=== PATIENT | male | born 1980 | race Native Hawaiian/Other Pacific Islander ===

== ENCOUNTER 2016-10-04 02:32 | Observation (INO) | payer OTHER ==
[2016-10-04 04:37] LABS: BASO # 0.1 K/uL (0.0-0.2); BASO % 0.7 % (0.0-2.0); EOS # 0.1 K/uL (0.0-0.7); EOS % 1.2 % (0.0-4.0); HEMATOCRIT 45.1 % (35.0-51.0); LYMPH # 1.6 K/uL (1.0-4.3); LYMPH % 15.3 % (20.0-40.0); MEAN CELL VOLUME 90.7 fL (80.0-94.0); MEAN CORPUSCULAR HEMOGLOBIN 30.7 pg (27.0-31.0); MEAN CORPUSCULAR HGB CONC 33.8 g/dL (33.0-37.0); MEAN PLATELET VOLUME 8.2 fL (7.2-11.7); MONO # 0.8 K/uL (0.0-0.8); MONO % 7.2 % (0.0-10.0); RED CELL DISTRIBUTION WIDTH 13.1 % (11.5-14.5); WHITE BLOOD COUNT 10.5 K/uL (4.8-10.8)
[2016-10-04 04:46] LABS: SODIUM 142 mmol/L (132-148)
[2016-10-04 04:48] LABS: GFR AFRICAN-AMERICAN > 60
[2016-10-04 04:49] LABS: ALB/GLOB RATIO 1.4 (1.0-2.1); ALKALINE PHOSPHATASE 71 U/L (38-126); ALT/SGPT 26 U/L (21-72); AST/SGOT 30 U/L (17-59); BLOOD UREA NITROGEN 5 mg/dL (9-20); CARBON DIOXIDE 23 mmol/L (22-30); GLUCOSE,RANDOM 109 mg/dL (75-110); TOTAL PROTEIN 8.4 g/dL (6.3-8.3)
[2016-10-04 04:50] LABS: ALCOHOL SERUM < 10 mg/dl (0-10); CALCIUM 9.2 mg/dl (8.6-10.4)
[2016-10-04 04:56] LABS: URINE BILIRUBIN NEGATIVE (NEGATIVE); URINE BLOOD NEGATIVE (NEGATIVE); URINE COLOR Straw (YELLOW); URINE GLUCOSE (UA) NORMAL (Normal); URINE KETONE NEGATIVE (NEGATIVE); URINE LEUKOCYTE ESTERASE NEG Leu/uL (Negative); URINE PROTEIN NEGATIVE (NEGATIVE); URINE UROBILINOGEN NORMAL mg/dL (0.2-1.0)
--- NOTE | 2016-10-04 05:00 | C.PDOC ---
History Of Present Illness A 36 year old male is brought to the emergency room by Police for erratic behavior that occurred prior to arrival. Patient notes that he raised his voice at his parents which caused them to be concerned. Patient has no history of psychiatric diagnosis. Patient denies suicidal ideation, homicidal ideation, or any other complaints. Time Seen by Provider: 10/04/16 02:49 Chief Complaint (Nursing): Medical Clearance History Per: Patient History/Exam Limitations: no limitations Onset/Duration Of Symptoms: Hrs Current Symptoms Are (Timing): Still Present Severity: Mild Recent travel outside of the [place]: No Past Medical History Reviewed: Historical Data, Nursing Documentation, Vital Signs Vital Signs: Last Vital Signs Temp 98.8 F 10/04/16 06:24 Pulse 82 10/04/16 06:24 Resp 99 H 10/04/16 06:24 BP 128/87 10/04/16 06:24 Pulse Ox 96 10/04/16 05:47 - Medical History PMH: Denies: Diabetes, Hepatitis, HIV, HTN, Seizures, Sexually Transmitted Disease Family History: States: No Known Family Hx - Social History Hx Alcohol Use: Yes Hx Substance Use: No - Immunization History Hx Tetanus Toxoid Vaccination: No Hx Influenza Vaccination: No Hx Pneumococcal Vaccination: No Review Of Systems Except As Marked, All Systems Reviewed And Found Negative. Constitutional: Negative for: Fever, Chills Gastrointestinal: Negative for: Nausea, Vomiting, Diarrhea Psych: Negative for: Anxiety, Depression, Suicidal ideation Physical Exam - Physical Exam Appears: Non-toxic, Unkempt Skin: Normal Color, Warm, Dry, No Rash Head: Atraumatic, Normacephalic Eye(s): bilateral: Normal Inspection, EOMI Nose: Normal Oral Mucosa: Moist Chest: Symmetrical Cardiovascular: Rhythm Regular Respiratory: Normal Breath Sounds, No Rales, No Rhonchi, No Wheezing Gastrointestinal/Abdominal: Soft, No Tenderness, No Guarding, No Rebound Extremity: Normal ROM, No Tenderness Neurological/Psych: Oriented x3, Normal Speech, Normal Cognition, Other (guarded ) Gait: Steady ED Course And Treatment - Laboratory Results Result Diagrams: 10/04/16 04:33 10/04/16 04:33 ECG: Interpreted By Me, Viewed By Me ECG Rhythm: Sinus Rhythm ECG Interpretation: Normal Interpretation Of ECG: Nonspecific ST/T changes Rate From EC O2 Sat by Pulse Oximetry: 96 - Radiology CXR: Interpreted by Me, Viewed By Me CXR Interpretation: Yes: No Acute Disease Progress Note: Patient was seen and evaluated by social media designer who instructs psychiatric screening. Patient is medically cleared. Patient signed out to SANTOS Prater at 07:00 am pending labs and disposition. Disposition - Disposition Disposition Time: 06:38 Condition: STABLE - Clinical Impression Clinical Impression: Psychiatric disorder - Scribe Statement The provider has reviewed the documentation as recorded by the Sandeeibishmael Al Provider Scribe Attestation: All medical record entries made by the Scribe were at my direction and personally dictated by me. I have reviewed the chart and agree that the record accurately reflects my personal performance of the history, physical exam, medical decision making, and the department course for this patient. I have also personally directed, reviewed, and agree with the discharge instructions and disposition.
--- NOTE | 2016-10-04 08:11 | RAD ---
HISTORY: poss involuntary psych adm. COMPARISON: No prior. FINDINGS: LUNGS: No active pulmonary disease. PLEURA: No significant pleural effusion identified, no pneumothorax apparent. CARDIOVASCULAR: Normal. OSSEOUS STRUCTURES: No significant abnormalities. VISUALIZED UPPER ABDOMEN: Normal. OTHER FINDINGS: None. IMPRESSION: No active disease.
[2016-10-04 11:54] VITALS: BP 125/87; PULSE 95; RESP 20; TEMP 98.6; O2SAT 98
[2016-10-04 17:03] LABS: CHLORIDE 102 mmol/L (98-107)
--- NOTE | 2016-10-06 17:09 | CARD ---
APPROVED REPORT EKG Measurement Heart [id number] <Conclusion> Normal sinus rhythm Normal ECG
== END 2016-10-04 11:52 | disposition home or self-care (01) ==
LOC: C.ER 02:32 → C.9OBSV 07:30
PROVIDERS: ADMIT Emergency Medicine; ATTEND Emergency Medicine
DX: R45.1 Restlessness and agitation (principal); F99 Mental disorder, not otherwise specified
CPT/HCPCS: 71010; 80053; 81001; 85025; 93005; 99283; G0378; G0480